=== PATIENT | male | born 1995 | race African-American/Black ===

== ENCOUNTER 2018-02-07 18:17 | Emergency (ER) | payer OTHER ==
[~2018-02-07] VITALS: Ht 175.3 cm; Wt 77.1 kg
[2018-02-07] MEDS ORDERED: MORPHINE SULFATE 4 MG/ML SYR/VIAL ONE (19:04)
[2018-02-07] MEDS ORDERED: MORPHINE SULFATE 8mg/ml INJ SDV IV ONE (19:15)
[2018-02-07] MEDS ORDERED: ONDANSETRON ODT 4 MG TAB PO ONE (19:15)
[2018-02-07] MEDS ORDERED: ETOMIDATE (2MG/ML) 20ML VIAL IV ONE (20:45)
[2018-02-07 23:00] VITALS: BP 124/67
== END 2018-02-07 23:12 | disposition home or self-care (01) ==
LOC: EDBD 18:17 → ER 18:20
DX: S83.015A Lateral dislocation of left patella, initial encounter (principal); W19.XXXA Unspecified fall, initial encounter; Y93.89 Activity, other specified; Y92.89 Other specified places as the place of occurrence of the external cause; Y99.8 Other external cause status
CPT/HCPCS: 27560; 73560; 73564; 96374; 99152; 99291; J2270; Q0162

== ENCOUNTER 2020-04-28 22:30 | Emergency (ER) | payer SELFPAY ==
[~2020-04-28] VITALS: Ht 182.9 cm; Wt 63.5 kg
[2020-04-29] MEDS ORDERED: HYDROcodone-ACET 5/325MG TAB PO ONE (00:15)
[2020-04-29 01:00] VITALS: BP 111/66
== END 2020-04-29 01:19 | disposition home or self-care (01) ==
LOC: ER 22:32
DX: S42.002A Fracture of unspecified part of left clavicle, initial encounter for closed fracture (principal); X58.XXXA Exposure to other specified factors, initial encounter; Y93.89 Activity, other specified; Y92.89 Other specified places as the place of occurrence of the external cause; Y99.8 Other external cause status
CPT/HCPCS: 73000; 73030

== ENCOUNTER 2020-07-05 12:32 | Emergency (ER) | payer MEDICAID, OTHER ==
[~2020-07-05] VITALS: Ht 185.4 cm; Wt 63.5 kg
[2020-07-05 16:13] VITALS: BP 110/62
== END 2020-07-05 16:14 | disposition home or self-care (01) ==
LOC: ER 12:32
DX: R55 Syncope and collapse (principal)
CPT/HCPCS: 82962; 93005

== ENCOUNTER 2022-06-12 09:35 | Inpatient (IN) | payer MEDICAID ==
[~2022-06-12] VITALS: Ht 182.9 cm; Wt 62.8 kg
[2022-06-12 10:16] LABS: Urine Bacteria NONE SEEN /hpf (None Seen); Urine Blood Negative /uL (Negative); Urine Hyaline Cast FEW /lpf (0 - 2); Urine Mucus FEW (None Seen); Urine Specific Gravity 1.021 (1.001-1.035); Urine WBC 1 /hpf (0 - 3)
[2022-06-12] MEDS ORDERED: SODIUM CHLORIDE 0.9% 1,000 ML IV ONE (11:00)
[2022-06-12 11:09] LABS: Albumin 4.6 g/dL (3.4-5.0); Basophils # (auto) 0 10 ^3/uL (0-0.2); Basophils % (auto) 0.3 % (0.0-2.0); Calcium 9.5 mg/dL (8.5-10.1); Eosinophils # (auto) 0.1 10 ^3/uL (0-0.8); Eosinophils % (auto) 0.6 % (0.0-7.0); Hematocrit 43.6 % (41.0-53.0); Hemoglobin 14.3 g/dL (13.5-17.5); Lymphocytes # (auto) 1.7 10 ^3/uL (0.4-5.4); Lymphocytes % (auto) 19.4 % (10.0-50.0); Mean Corpuscular Hemoglobin 27.1 pg (28.0-32.0); Mean Corpuscular Hgb Conc. 32.7 g/dL (32.0-36.0); Mean Corpuscular Volume 82.9 fL (80.0-100.0); Monocytes # (auto) 0.3 10 ^3/uL (0-1.3); Monocytes % (auto) 3.5 % (0.0-12.0); Neutrophils # (auto) 6.5 10 ^3/uL (1.6-8.6); Neutrophils % (auto) 76.2 % (37.0-80.0); Red Blood Cells 5.26 10^6/uL (4.5-5.90); Red Cell Distribution Width 13.1 % (11.8-14.3); White Blood Cell 8.5 10^3/uL (4.4-10.8)
[2022-06-12 11:13] LABS: BUN/Creatinine Ratio 16.3; Bilirubin, Total 0.8 mg/dL (0.2-1.0); Total Protein 8.2 g/dL (6.4-8.2)
[2022-06-12 11:23] LABS: Potassium 2.8 mmol/L (3.5-5.1)
[2022-06-12] MEDS ORDERED: POTASSIUM EFFERVESENT TAB 25 MEQ PO ONE (11:30)
[2022-06-12] MEDS ORDERED: POTASSIUM CHL 20MEQ/100ML 100 ML IV ONE (11:30)
[2022-06-12] MEDS ORDERED: DOCUSATE SOD 100 MG CAP PO PRN (19:15)
[2022-06-12] MEDS ORDERED: ACETAMINOPHEN 325 MG TAB PO PRN (19:15)
[2022-06-12] MEDS ORDERED: ONDANSETRON HCL 4 MG/2 ML VIAL IV PRN (19:15)
[2022-06-12] MEDS ORDERED: HYDROcodone-ACET 5/325MG TAB PO PRN (19:15)
[2022-06-12] MEDS ORDERED: TEMAZEPAM 15 MG CAP PO PRN (19:15)
[2022-06-12] MEDS ORDERED: MORPHINE SULFATE INJ 2 MG/ml SYRG IV PRN (19:15)
[2022-06-12] MEDS: SODIUM CHLORIDE 0.9% 1,000 ML IV SCH (20:08)
[2022-06-13 01:15] VITALS: BP_SYST 108
[2022-06-13 05:00] VITALS: BP 101/41
[2022-06-13 09:00] VITALS: BP 137/91
[2022-06-13] MEDS: cefTRIAXone 1GM/50ML D5W 50 ML IV SCH (09:16)
[2022-06-13] MEDS ORDERED: ENOXAPARIN SOD 40 MG/0.4 ML SYRINGE SC SCH (10:00)
[2022-06-13 11:15] LABS: Albumin 4.1 g/dL (3.4-5.0); Potassium 3.2 mmol/L (3.5-5.1)
[2022-06-13 11:17] LABS: Basophils # (auto) 0 10 ^3/uL (0-0.2); Basophils % (auto) 0.4 % (0.0-2.0); Eosinophils # (auto) 0.1 10 ^3/uL (0-0.8); Eosinophils % (auto) 1.4 % (0.0-7.0); Hemoglobin 13.3 g/dL (13.5-17.5); Lymphocytes % (auto) 39.3 % (10.0-50.0)
[2022-06-13 11:19] LABS: Hematocrit 40.9 % (41.0-53.0); Lymphocytes # (auto) 2.1 10 ^3/uL (0.4-5.4); Mean Corpuscular Hemoglobin 27.1 pg (28.0-32.0); Mean Corpuscular Hgb Conc. 32.5 g/dL (32.0-36.0); Mean Corpuscular Volume 83.6 fL (80.0-100.0); Monocytes # (auto) 0.3 10 ^3/uL (0-1.3); Monocytes % (auto) 6.6 % (0.0-12.0); Neutrophils # (auto) 2.8 10 ^3/uL (1.6-8.6); Neutrophils % (auto) 52.3 % (37.0-80.0); Nucleated Red Blood Cells % 0.2 %; Red Cell Distribution Width 13.4 % (11.8-14.3); White Blood Cell 5.3 10^3/uL (4.4-10.8)
[2022-06-13 11:28] LABS: BUN/Creatinine Ratio 9.1; Bilirubin, Total 0.8 mg/dL (0.2-1.0); Calcium 9.1 mg/dL (8.5-10.1); Total Protein 7.2 g/dL (6.4-8.2)
[2022-06-13] MEDS ORDERED: POTASSIUM CHL 20MEQ/100ML 100 ML IV ONE (12:15)
[2022-06-13] MEDS ORDERED: POTASSIUM EFFERVESENT TAB 25 MEQ PO ONE ×2 (12:15→22:30)
[2022-06-13] MEDS ORDERED: CEPH500C PO (12:22)
[2022-06-13 13:00] VITALS: BP 98/50
[2022-06-13] MEDS: SODIUM CHLORIDE 0.9% 1,000 ML IV SCH (16:05)
[2022-06-13 17:00] VITALS: BP 105/55
[2022-06-13] MEDS ORDERED: SODIUM CHLORIDE 0.9% 1,000 ML IV ONE (22:30)
[2022-06-13 23:44] VITALS: BP 135/72
[2022-06-14] MEDS: POTASSIUM CHL 20MEQ/100ML 100 ML IV SCH ×6 (00:30→18:05)
[2022-06-14 05:00] VITALS: BP 100/55
[2022-06-14] MEDS ORDERED: POTASSIUM EFFERVESENT TAB 25 MEQ PO ONE (05:15)
[2022-06-14 09:00] VITALS: BP 95/51
[2022-06-14] MEDS: cefTRIAXone 1GM/50ML D5W 50 ML IV SCH (10:18)
[2022-06-14 12:43] LABS: Albumin 4.2 g/dL (3.4-5.0); Calcium 9.1 mg/dL (8.5-10.1)
[2022-06-14 12:47] LABS: BUN/Creatinine Ratio 10.5; Bilirubin, Total 0.6 mg/dL (0.2-1.0); Total Protein 7.9 g/dL (6.4-8.2)
[2022-06-14 13:00] VITALS: BP 99/53
[2022-06-14 13:04] LABS: Potassium 3.2 mmol/L (3.5-5.1)
[2022-06-14] MEDS ORDERED: POTA-180 PO (14:14)
[2022-06-14] MEDS ORDERED: POTASSIUM EFFERVESENT TAB 25 MEQ PO SCH (14:15)
[2022-06-14] MEDS: POTASSIUM EFFERVESENT TAB 25 MEQ PO SCH ×2 (16:01→18:30)
[2022-06-14 16:43] VITALS: BP 114/59
[2022-06-14 20:36] LABS: BUN/Creatinine Ratio 8.1; Calcium 9.3 mg/dL (8.5-10.1)
== END 2022-06-14 21:50 | disposition home or self-care (01) | DRG 422 ==
LOC: ER 09:35 → OVERFLOW 19:11 → WEST WING 06-13 01:09
PROVIDERS: ADMIT Internal Medicine; ATTEND Internal Medicine
DX: E87.6 Hypokalemia (principal); E86.0 Dehydration; N39.0 Urinary tract infection, site not specified; Z20.822 Contact with and (suspected) exposure to COVID-19; R00.1 Bradycardia, unspecified; R63.6 Underweight; Z82.49 Family history of ischemic heart disease and other diseases of the circulatory system; Z68.1 Body mass index [BMI] 19.9 or less, adult
CPT/HCPCS: 36415; 71045; 80048; 80053; 81001; 83735; 84132; 84484; 85025; 87086; 93005; 93306; 96360; 96361; G0378; J0696; J3480